=== PATIENT | female | born 1975 | race Asian ===

== ENCOUNTER 2021-07-17 19:12 | Emergency (ER) | payer MEDICAID ==
[~2021-07-17] VITALS: Ht 162.6 cm; Wt 68.7 kg
[2021-07-17 19:16] VITALS: BP 122/68
== END 2021-07-17 21:28 | disposition home or self-care (01) ==
LOC: ER 19:13
DX: L30.8 Other specified dermatitis (principal)
CPT/HCPCS: 99282

== ENCOUNTER 2024-10-30 18:12 | Emergency (ER) | payer MEDICAID ==
[~2024-10-30] VITALS: Ht 162.6 cm; Wt 69.1 kg
[2024-10-30 18:15] VITALS: TEMP 98.2
[2024-10-30 19:07] LABS: CREATININE 0.61 MG/DL (0.40-0.90); TOTAL CARBON DIOXIDE 26.2 MMOL/L (24-32); eCRCL 100 ML/MIN; eGFR > 90 ML/MIN
[2024-10-30 19:46] LABS: LEUKOCYTE ESTERASE ,URINE NEGATIVE (Neg); NITRITES, URINE NEGATIVE (Neg); OCCULT BLOOD,URINE TRACE-INTACT (Neg)
[2024-10-30 19:47] LABS: URINE HCG NEGATIVE (NEG)
[2024-10-30 19:48] LABS: MEAN PLATELET VOLUME 6.7 FL (7.4-10.4); RED CELL DISTRIBUTION WIDTH 13.1 % (11.5-14.5)
[2024-10-30 19:53] LABS: UA COLLECTION TYPE CLN CATCH MIDSTREAM
[2024-10-30] MEDS ORDERED: iohexol 300mg/ml 100ml inj. ONE (20:04)
[2024-10-30 20:18] LABS: SQUAMOUS EPITHELIAL CELL,UR FEW /LPF (FEW)
--- NOTE | 2024-10-30 20:30 | RADIOLOGY REPORT ---
Exam: CT CT ABDOMEN PELVIS W/ IV CONTRAST History: RLQ pain COMPARISON: None Technique: Multidetector spiral CT of the abdomen and pelvis was performed from lung bases to pubic symphysis. Intravenous contrast was administered during this examination. Portal venous imaging was obtained. Axial, coronal and sagittal multiplanar reformats were performed by the technologist on a separate workstation. Radiation Dose : 1. Abdomen/Pelvis: CTDIvol 9.91 mGy, DLP 476.57 mGy*cm. CONTRAST: Type of contrast: Omnipague 300 Contrast injected: 100 ml Findings: Lung Bases: No acute or significant lung base finding. Normal heart size. No pleural or pericardial effusion. Liver: The liver is normal in size. No focal lesions. Normal hepatic vascular enhancement. Gallbladder and biliary Tree: Unremarkable Spleen: Unremarkable Pancreas: The pancreas is normal in appearance without focal lesions or abnormal enhancement. Adrenal Glands: Unremarkable Kidneys: No hydronephrosis. Bladder: Unremarkable Bowel: The stomach is grossly normal in appearance. Small bowel and colon are normal in caliber and distribution. The appendix is not visualized; however, no secondary findings of acute appendicitis identified. Ascites: Absent Lymphadenopathy: No mesenteric, retroperitoneal or periportal lymphadenopathy. Abdominal wall and Mesentery: Unremarkable. Vasculature: The visualized abdominal aorta is normal in size and caliber. Abdominal and pelvic vessels demonstrate normal enhancement. Pelvic Organs: Unremarkable Musculoskeletal: No aggressive focal bony lesions, acute fractures or dislocation. IMPRESSION: 1. No acute abdominal or pelvic finding. Radiation optimization: All CT scans at this facility use at least one of these dose optimization techniques: automated exposure control mA and/or kV adjustment per patient size (includes targeted exams where dose is matched to clinical indication) or iterative reconstruction.
--- NOTE | 2024-10-30 21:05 | Physician Documentation ---
History of Present Illness Chief Complaint: Abdominal Pain Stated Complaint: RIGHT SIDE PAIN Time Seen by MD: 19:39 Primary Medical Doctor: Joyce Mode of Arrival: POV HPI 48-year-old female who presents to the emergency department right lower quadrant pain with no reported fever or nausea or vomiting. Pain is described as sharp and that waxes and wanes. Reports that she has been treated by the chiropractor for some right lower lumbar discomfort. This stemmed from an incident at work that happened in September 26. She denies radicular pain down the right lower extremity yet this pain is located in right lower quadrant almost over the hip bone. He has no associated urinary symptoms or prior history of the same. No nausea or vomiting. Patient has a nonantalgic gait. She is grossly neurologically intact. Medication Reconciliation Allergies: Coded Allergies: No Known Allergies (Unverified , 10/30/24) Past Medical History Past Medical History: No Pertinent History Past Surgical History: noncontributory Lives In: Home Occupation: employed Review of Systems All Other Systems at this time: Reviewed and Negative Gastrointestinal: Reports: see HPI, abdominal pain Musculoskeletal: Reports: pain, back pain Physical Exam Vital Signs: Temperature: 98.2, Source: Temporal, Heart Rate: 80, Respiratory Rate: 18, BP: 127/70, Pulse Oximetry: 97, Weight: 69.090 General Appearance: alert, WD/WN, mild distress EENT: PERRL/EOMI Neck: normal inspection Respiratory: normal breath sounds Gastrointestinal: tenderness Gastrointestinal Mild positive McBurney's point tenderness with negative psoas negative rebound Back: normal inspection, other (Right lower lumbar pain) Extremities: normal range of motion, other (No pain with internal rotation external rotation abduction or adduction) Neurologic: oriented x4 Psychiatric: normal mood/affect Skin: normal color Progress Results/Orders Results/Orders Orders - RADHA CHUNG PAC Ct Abdomen Pelvis (10/30/24 20:00) Completed Orders - RADHA CHUNG PAC Ct Abdomen Pelvis (10/30/24 20:00) Iohexol 300mg/Ml 100ml Inj. (Omnipaque-3 (10/30/24 20:04) Vital Signs 10/30/24 10/30/24 18:15 18:51 Temp 98.2 Pulse 80 Resp 18 18 B/P (MAP) 127/70 Pulse Ox 97 Laboratory Tests Test 9/22/25 18:43 10/30/24 19:27 10/30/24 19:41 CBC Comment Sodium Level 138 Potassium Level 3.7 Chloride Level 103 Carbon Dioxide Level 26.2 Anion Gap 9 Blood Urea Nitrogen 8 Creatinine 0.61 Estimated GFR/1.73 m2 > 90 BUN/Creatinine Ratio 13.1 Glucose Level 95 Calcium Level 9.0 Total Bilirubin 0.5 Aspartate Amino Transf (AST/SGOT) 18 Alanine Aminotransferase (ALT/SGPT) 14 Alkaline Phosphatase 50 Total Protein 7.2 Albumin 3.9 Globulin 3.3 Albumin/Globulin Ratio 1.2 Amylase Level 54 Lipase 46 Chemistry Comments Urine Specimen Description Cln catch midstream Urine Color Yellow Urine Clarity Clear Urine pH 6.0 Urine Specific Donie 1.025 Urine Protein Negative Urine Glucose (UA) Negative Urine Ketones Negative Urine Occult Blood Trace-intact Urine Nitrite Negative Urine Bilirubin Negative Urine Urobilinogen 0.2 Urine Leukocyte Esterase Negative Urine RBC 0-2 Urine WBC 0-4 Urine Squamous Epithelial Cells Few Urine Bacteria Few Urine Culture Indicated Not ind Volume Urine Centrifuged 10 ml Urine HCG, Qualitative Negative Urine Comment White Blood Count 6.8 Red Blood Count 4.19 L Hemoglobin 13.1 Hematocrit 37.7 Mean Corpuscular Volume 90.0 Mean Corpuscular Hemoglobin 31.3 H Mean Corpuscular Hemoglobin Concent 34.8 Red Cell Distribution Width 13.1 Platelet Count 307 Mean Platelet Volume 6.7 L Neutrophils (%) (Auto) 47.9 Lymphocytes (%) (Auto) 42.3 Monocytes (%) (Auto) 7.1 Eosinophils (%) (Auto) 2.2 Basophils (%) (Auto) 0.5 Neutrophils # (Auto) 3.3 Lymphocytes # (Auto) 2.9 Monocytes # (Auto) 0.5 Eosinophils # (Auto) 0.2 Basophils # (Auto) 0.0 Medical Decision Making Additional Comments He is 8-year-old female who 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 Today I exam is mildly positive for right lower quadrant positive Gallegos's sign indicated the need for CT imaging to clear for appendicitis or other intra-abdominal or pelvic pathologies. CT imaging reassuring along with labs are reassuring. No urinary tract infection. I suspect the pain is likely radicular in nature stemming from your lumbar injury. She will be discharged in the emergency department grossly neurologically intact without focal neuro deficits to continue with the medications and follow up with the primary care physician. Departure Disposition: HOME / SELF CARE / HOMELESS Impression: Primary Impression: Abdominal pain Qualified Codes: R10.31 - Right lower quadrant pain Additional Impression: Lumbar pain with radiation down right leg Condition: Stable Discharge Instructions: Abdominal Pain (Nonspecific) Additional Instructions: Your labs and CT imaging tonight are reassuring for no acute appendicitis or renal pathology. I suspect your pain is radicular pain originating from your lower back injury. Please follow up with your primary care physician and chiropractor. Thank you for visiting emergency department of [facility]. Referrals: NO PRIMARY CARE PROVIDER (PCP) Education Educated: Patient Educated regarding: diagnosis, treatment Signature Scribe Signature: . Attestation: . RADHA CHUNG PAC Oct 30, 2024 21:05
[2024-10-30 21:20] VITALS: BP 106/73; PULSE 68; RESP 15; O2SAT 98
== END 2024-10-30 21:22 | disposition home or self-care (01) ==
LOC: ER 18:12
DX: R10.31 Right lower quadrant pain (principal); M54.50 Low back pain, unspecified
CPT/HCPCS: 36415; 74177; 80053; 81001; 81025; 82150; 83690; 85025; 99285; Q9967